=== PATIENT | male | born 1960 | race Caucasian/White ===

== ENCOUNTER 2022-04-11 11:54 | Emergency (ER) | payer OTHER, SELFPAY ==
[~2022-04-11] VITALS: Ht 170.2 cm; Wt 111.0 kg
[2022-04-11] MEDS ORDERED: BENZONATATE 100MG CAPSULE PO ONE (13:50)
[2022-04-11] MEDS ORDERED: EPLE50TA (14:20)
[2022-04-11] MEDS ORDERED: CABE0.5T (14:20)
[2022-04-11] MEDS ORDERED: ESZO1TAB4 (14:20)
[2022-04-11] MEDS ORDERED: ATOR80TA59 (14:20)
[2022-04-11] MEDS ORDERED: BUPR150T12 (14:20)
[2022-04-11] MEDS ORDERED: BENZ-18 (14:20)
[2022-04-11] MEDS ORDERED: ALBU8.5H (14:20)
[2022-04-11] MEDS ORDERED: SYMB16INH (14:20)
[2022-04-11] MEDS ORDERED: BRIN1TAB (14:20)
[2022-04-11] MEDS ORDERED: LOSA100T8 (14:20)
[2022-04-11] MEDS ORDERED: DOXY100T (14:20)
[2022-04-11] MEDS ORDERED: LAMO100T3 (14:20)
[2022-04-11] MEDS ORDERED: CLON-412 (14:20)
[2022-04-11] MEDS ORDERED: LEVO88TA3 (14:20)
[2022-04-11 14:37] LABS: RSV AMPLIFICATION NEGATIVE (NEGATIVE)
[2022-04-11] MEDS ORDERED: BENZ200C70 PO (15:01)
[2022-04-11 15:13] VITALS: BP 142/83
== END 2022-04-11 15:14 | disposition home or self-care (01) ==
LOC: M ED 11:54 → EDBD 11:54 → M ED 15:14
DX: R05.9 Cough, unspecified (principal); F41.8 Other specified anxiety disorders; J45.909 Unspecified asthma, uncomplicated; I10 Essential (primary) hypertension; E78.5 Hyperlipidemia, unspecified; F31.9 Bipolar disorder, unspecified; Z79.899 Other long term (current) drug therapy